=== PATIENT | female | born 1995 | race African-American/Black ===

== ENCOUNTER 2016-10-19 14:09 | Emergency (ER) | payer BC, MEDICAID ==
[2016-10-19 15:25] LABS: HEMATOCRIT 30 % (35-47); MEAN CORPUSCULAR HGB CONC 37.2 gm/dl (32.0-36.0); MEAN CORPUSCULAR VOLUME 92 fL (81-99)
[2016-10-19 15:26] LABS: ALBUMIN 2.5 gm/dl (3.4-5.0); CALCIUM 7.9 mg/dl (8.5-10.1); POTASSIUM 3.7 mMol/L (3.5-5.1); THYROID STIMULATING HORMONE 0.776 uU/ml (0.358-3.740)
[2016-10-19 15:27] VITALS: TEMP 97.7
[2016-10-19 15:53] LABS: BASOPHILS % (MANUAL) 0 % (0-3); EOSINOPHILS % (MANUAL) 1 % (0-9); LYMPHOCYTES % (MANUAL) 16 % (10-50)
[2016-10-19 15:54] LABS: ANISOCYTOSIS SLIGHT
[2016-10-19 16:00] VITALS: BP 95/73; PULSE 117; RESP 19; O2SAT 96
== END 2016-10-19 16:10 | disposition home or self-care (01) ==
LOC: ED 14:09
DX: O75.89 Other specified complications of labor and delivery (principal); Z3A.30 30 weeks gestation of pregnancy; R00.2 Palpitations
CPT/HCPCS: 36415; 80053; 84443; 85007; 85027; 93005; 99282; 99283